=== PATIENT | female | born 1990 | race Caucasian/White ===

== ENCOUNTER 2021-07-26 17:56 | Emergency (ER) | payer BC, OTHER ==
[2021-07-26] MEDS ORDERED: traMADol 50 MG Tab PO ONE (20:45)
[2021-07-26] MEDS ORDERED: Ketorolac 30 MG/ML SDV IM ONE (20:45)
[2021-07-26] MEDS ORDERED: Diphtheria,Pertussis(Acell),Tetanus Vaccine 0.5 ML Syringe IM ONE (20:45)
--- NOTE | 2021-07-26 20:56 | EDM.PDOC ---
ED HPI GENERAL MEDICAL PROBLEM - General Chief Complaint: Laceration Stated Complaint: LIP INJURY Time Seen by Provider: 07/26/21 20:36 Source of Information: Reports: Patient History Limitations: Reports: No Limitations - History of Present Illness INITIAL COMMENTS - FREE TEXT/NARRATIVE: HISTORY AND PHYSICAL: History of present illness: Patient is a 31-year-old female who presents emergency room today with concern of tooth and lip injury that occurred just prior to arrival to the emergency room. Patient states that she was setting up workout equipment that attaches to the wall and states that she was pulling on a piece of piping that was not releasing. Patient states the piping finally released and the pipe came flying towards her face and hit her in the bottom lip and also broke her top tooth. Patient states that the tooth is of a Veneer that she had done in [place] but states that she does have a dentist here in [place] that she has already contacted that will see her tomorrow morning in order to address the tooth. Patient states that she did has not taken anything for her pain and states that she would like some medication as it is starting to throb. Patient states that she is not up-to-date on her tetanus and would like to update this today. Patient denies fever, chills, chest pain, shortness of breath, or cough. Denies headache, neck stiff ness, change in vision, syncope, or near syncope. Denies nausea, vomiting, abdominal pain, diarrhea, constipation, or dysuria. Has not noted any blood in urine or stool. Patient has been eating and drinking appropriately. Review of systems: As per history of present illness and below otherwise all systems reviewed and negative. Past medical history: As per history of present illness and as reviewed below otherwise noncontributory. Surgical history: As per history of present illness and as reviewed below otherwise noncontributory. Social history: See social history for further information Family history: As per history of present illness and as reviewed below otherwise noncontributory. Physical exam: General: Patient is alert, oriented, and in no acute distress. Patient sitting comfortably on exam table. Vitals stable and reviewed by me. HEENT: Tooth #7 is fractured at the inferior portion. There is an inner lip laceration that is superficial/not through and through but approximately 1 cm and tender to palpation with hemostasis. There is another 0.5cm triangular shaped laceration of the right lower lip that is 1-2mm inferior to the molina border but does not involve the molina border. Otherwise, atraumatic, normocephalic, pupils equal and reactive bilaterally, negative for conjunctival pallor or scleral icterus, mucous membranes moist, throat clear, neck supple, nontender, trachea midline. No drooling or trismus noted. No meningeal signs. No hot potato voice noted. Lungs: Clear to auscultation, breath sounds equal bilaterally, chest nontender. Heart: S1S2, regular rate and rhythm without overt murmur Abdomen: Soft, nondistended, nontender. Negative for masses or hepatosplenomegaly. Negative for costovertebral tenderness. Pelvis: Stable nontender. Genitourinary: Deferred. Rectal: Deferred. Skin: Intact, warm, dry. No lesions or rashes noted. Extremities: Atraumatic, negative for cords or calf pain. Neurovascular unremarkable. Neuro: Awake, alert, oriented. Cranial nerves II through XII unremarkable. Cerebellum unremarkable. Motor and sensory unremarkable throughout. Exam nonfocal. Notes: The inner lip laceration does not require suturing. The outer lip laceration was sutured. See procedure note below. Signs and symptoms that were prompt return to the ED thoroughly discussed with patient. Discussed importance for follow-up with a dentist and primary care provider. Voices understanding and is agreeable to plan of care. Denies any further questions or concerns at this time. Diagnostics: None Therapeutics: Tdap, Toradol, Tramadol, topical let, sutures Prescription: None Impression: Lip laceration, two Tooth fracture Plan: 1. Keep the area clean and dry. Continue to monitor for signs of infection as discussed. 2. Tylenol and/or ibuprofen as directed and as needed for pain management and discomfort. 3. Please follow-up with your primary care provider and dentist as scheduled and as discussed. Return to the ED as needed and as discussed. Definitive disposition and diagnosis as appropriate pending reevaluation and review of above. Bilateral Lip Pain Score (Numeric/FACES): 6 - Related Data Allergies Allergy/AdvReac Type Severity Reaction Status Date / Time No Known Allergies Allergy Verified 07/26/21 20:07 Home Meds: Home Meds buPROPion [Wellbutrin] 07/26/21 [History] Past Medical History - Past Health History Medical/Surgical History: Denies Medical/Surgical History - Infectious Disease History Infectious Disease History: Reports: None Social & Family History - Family History Family Medical History: No Pertinent Family History - Tobacco Use Tobacco Use Status *Q: Never Tobacco User - Caffeine Use Caffeine Use: Reports: Coffee, Soda - Recreational Drug Use Recreational Drug Use: No ED ROS GENERAL - Review of Systems Review Of Systems: Comprehensive ROS is negative, except as noted in HPI. ED EXAM, SKIN/RASH Exam: See Below (see dictation) ED SKIN PROCEDURES - Laceration/Wound Repair Right Lower Other Appearance: Subcutaneous, Irregular, Clean Distal NVT: Neuro & Vascular Intact, No Tendon Injury Anesthetic Type: Topical Skin Prep: Chlorhexidine (Hibiciens), Saline Saline Irrigation (cc's): 250 Exploration/Debridement/Repair: Wound Explored, In a Bloodless Field, Explored to Base, No Foreign Material Found Closed with: Sutures Lac/Wound length In cm: 0.5 # of Sutures: 2 Suture Type: Other (chromic gut) Drain Placement: No Sterile Dressing Applied: None Tetanus Status Addressed: Yes Complications: No Course - Vital Signs Last Recorded V/S: Last Vital Signs Temp 97.8 F 07/26/21 20:08 Pulse 78 07/26/21 20:08 Resp 17 07/26/21 20:08 BP 122/67 07/26/21 20:08 Pulse Ox 98 07/26/21 20:08 - Orders/Labs/Meds Orders: Active Orders 24 hr Category Date Time Status Vaccine to be Administered/Admin Charge [RC] ASDIRECTED Care 07/26/21 20:45 Active Meds: Medications Discontinued Medications Generic Name Dose Route Start Last Admin Trade Name Trevin PRN Reason Stop Dose Admin Diphtheria/Tetanus/Acell Pertussis 0.5 ml 07/26/21 20:45 07/26/21 20:51 Diphtheria,Pertussis(Acell),Tetanus Vaccine 0.5 Ml Syringe IM 07/26/21 20:46 0.5 ml .ONCE ONE Administration Ketorolac Tromethamine 30 mg 07/26/21 20:45 07/26/21 20:52 Ketorolac 30 Mg/Ml Sdv IM 07/26/21 20:46 30 mg ONETIME ONE Administration Lidocaine/Tetracaine 1 ml 07/26/21 21:16 10/03/21 21:35 Epinephrine/Lidocaine/Tetracai Topical Gel 3 Ml TOP 07/26/21 21:17 1 ml ONETIME ONE Administration Tramadol HCl 50 mg 07/26/21 20:45 07/26/21 20:50 Tramadol 50 Mg Tab PO 07/26/21 20:46 50 mg ONETIME ONE Administration Departure - Departure Time of Disposition: 21:50 Disposition: Home, Self-Care 01 Clinical Impression: Tooth fracture, Lip laceration - Discharge Information Referrals: Sarika Rai NP [Primary Care Provider] - Forms: ED Department Discharge Additional Instructions: The following information is given to patients seen in the emergency department who are being discharged to home. This information is to outline your options for follow-up care. We provide all patients seen in our emergency department with a follow-up referral. The need for follow-up, as well as the timing and circumstances, are variable depending upon the specifics of your emergency department visit. If you don't have a primary care physician on staff, we will provide you with a referral. We always advise you to contact your personal physician following an emergency department visit to inform them of the circumstance of the visit and for follow-up with them and/or the need for any referrals to a consulting specialist. The emergency department will also refer you to a specialist when appropriate. This referral assures that you have the opportunity for follow-up care with a specialist. All of these measure are taken in an effort to provide you with optimal care, which includes your follow-up. Under all circumstances we always encourage you to contact your private physician who remains a resource for coordinating your care. When calling for follow-up care, please make the office aware that this follow-up is from your recent emergency room visit. If for any reason you are refused follow-up, please contact the [facility] Emergency Department at and asked to speak to the emergency department charge nurse. [facility] [address] [place] [address] [id number] [address] [id number] 1. Keep the area clean and dry. Continue to monitor for signs of infection as discussed. 2. Tylenol and/or ibuprofen as directed and as needed for pain management and discomfort. 3. Please follow-up with your primary care provider and dentist as scheduled and as discussed. Return to the ED as needed and as discussed. Sepsis Event Note (ED) - Focused Exam Vital Signs: Vital Signs Temp Pulse Resp BP Pulse Ox 07/26/21 20:08 97.8 F 78 17 122/67 98 - My Orders Last 24 Hours: My Active Orders 07/26/21 20:45 Vaccine to be Administered/Admin Charge [RC] ASDIRECTED - Assessment/Plan Last 24 Hours: My Active Orders 07/26/21 20:45 Vaccine to be Administered/Admin Charge [RC] ASDIRECTED
[2021-07-26] MEDS ORDERED: EPINEPHrine/Lidocaine/Tetracai Topical Gel 3 ML TOP ONE (21:16)
== END 2021-07-26 22:12 | disposition home or self-care (01) ==
LOC: EDSEX 17:56 → MW.ED 17:56
DX: S02.5XXA Fracture of tooth (traumatic), initial encounter for closed fracture (principal); S01.511A Laceration without foreign body of lip, initial encounter; Z23 Encounter for immunization; W22.8XXA Striking against or struck by other objects, initial encounter
CPT/HCPCS: 12011; 90471; 90715; 96372; 99283; A9270; J1885